=== PATIENT | female | born 1945 | race Caucasian/White ===

== ENCOUNTER 2019-02-25 09:25 | Emergency (ER) | payer OTHER ==
[~2019-02-25] VITALS: Ht 165.1 cm; Wt 122.5 kg
[~2019-02-25 09:25] MED LIST: AVAPRO150 MG PO; CLONAZEPAM1 MG; LEXAPRO5 MG; METFORMIN HCL500 MG; METFORMIN HCL500 MG PO; PROTONIX40 MG; PROTONIX40 MG PO; RELAFEN PO; SYNTHROID112 MCG PO; VOLTAREM 50 MG PO; ZANTAC300 MG; ZANTAC300 MG PO
[2019-02-25] MEDS ORDERED: GABAPENTIN400 MG (09:56)
== END 2019-02-25 15:44 | disposition home or self-care (01) ==
LOC: ER 09:25
DX: H01.006 Unspecified blepharitis left eye, unspecified eyelid (principal); H01.003 Unspecified blepharitis right eye, unspecified eyelid; M79.672 Pain in left foot